=== PATIENT | male | born 1960 | race Hispanic/Latino ===

== ENCOUNTER 2020-12-11 10:26 | Emergency (ER) | payer OTHER | END 2020-12-11 12:40 | disposition home or self-care (01) | LOC: EDH 10:26 | DX: S46.012A Strain of muscle(s) and tendon(s) of the rotator cuff of left shoulder, initial encounter (principal); M54.2 Cervicalgia; I10 Essential (primary) hypertension; V49.49XA Driver injured in collision with other motor vehicles in traffic accident, initial encounter; Y93.89 Activity, other specified; Y92.89 Other specified places as the place of occurrence of the external cause; Y99.8 Other external cause status | CPT/HCPCS: 73020 ==